=== PATIENT | female | born 1985 | race Caucasian/White ===

== ENCOUNTER → 2024-09-18 12:08 | Outpatient (BNVA) | payer OTHER, SELFPAY | PROVIDERS: Visit Provider Student in an Organized Health Care Education/Training Program | DX: B39.9 Histoplasmosis, unspecified (principal); R53.82 Chronic fatigue, unspecified | CPT/HCPCS: 36415; 81001; 85651; 86140; 86160; 86162; 86235; 86255; 86376; 86698; 87385 ==

== ENCOUNTER → 2024-12-24 11:38 | Outpatient (BNVA) | payer OTHER, SELFPAY | PROVIDERS: Referring Provider Student in an Organized Health Care Education/Training Program; Visit Provider Internal Medicine Rheumatology | DX: M47.894 Other spondylosis, thoracic region (principal); Z98.890 Other specified postprocedural states | CPT/HCPCS: 36415; 72072; 72100; 72202; 80076; 82085; 82306; 82550; 82565; 83520; 85025; 85651; 86140; 86200; 86431; 86480; 86704; 86803; 86812; 87340 ==